=== PATIENT | male | born 1965 | race Caucasian/White ===

== ENCOUNTER 2016-11-12 18:44 | Emergency (ER) | payer MEDICARE, OTHER ==
[~2016-11-12 18:44] MED LIST: ARIP2TAB PO; ASPI325T4 PO; BENZ1TAB5 PO; BUPR75TA5 PO; CETI1SOL11 PO; CHOL400C2 PO; CYCL5TAB PO; DICL75TA PO; DIPH25CA58 PO; FENT1PAT19 TD; FLUT1DIS IH; HYDR-2680 PO; HYDR12.58 PO; METF500T4 PO; METO25TA9 PO; MULT1TAB97 PO; OMEP20TA PO; POLY17PO5 PO; TAMS0.4C2 PO; XOPENEX0.31 MG/3 IH; ZOLP5TAB PO
[2016-11-12 19:15] VITALS: BP 144/92
[2016-11-12] MEDS ORDERED: AZIT250T PO (21:07)
[2016-11-12] MEDS ORDERED: OXYC-323 PO (21:07)
[2016-11-12] MEDS ORDERED: FLUT9.9S NS (21:07)
--- NOTE | 2016-11-12 21:07 | PHYS DOC ---
Past Medical History Past Medical History: Anxiety, Asthma, CVA, Depression, Diabetes-Type II, Diverticulitis, Hypertension, [place], Other Additional Past Medical Histor: Chronic neck and back pain, bulging discs, psychosis Past Surgical History: Hip Replacement Additional Past Surgical Histo: Ankle surgery, bilateral hip Smoking: Cigarettes Alcohol Use: None Drug Use: None Adult General Chief Complaint Chief Complaint: RIB PAIN [facility] HPI Patient is a 51 year old male who presents with left anterior rib pain for 5 days after calling. Patient relates that he slipped and fell on the ice and hit the side of his chest on a railing. He denies any other injuries with the fall. He has had a productive cough for approximately 3 weeks with shortness of breath and nasal congestion as well. He denies any fevers at home. He usually takes Flonase but is out of this prescription. He has been using Afrin for his nasal congestion. His PCP is Dr. Juan Schneider. Review of Systems Review of Systems Constitutional: Denies fever or chills. [] Eyes: Denies change in visual acuity, redness, or eye pain. [] HENT: Denies ear pain or sore throat. Reports nasal congestion. Respiratory: Reports productive cough and shortness of breath. Cardiovascular: Denies palpitations or edema. Reports left anterior rib pain. GI: Denies abdominal pain, nausea, vomiting, bloody stools or diarrhea. [] Musculoskeletal: Denies back pain or joint pain. [] Integument: Denies rash or skin lesions. [] Neurologic: Denies headache, focal weakness or sensory changes. [] All systems reviewed and negative unless otherwise stated in the HPI. Allergies Allergies Allergies Coded Allergies Type Severity Reaction Last Updated Verified propoxyphene Allergy Intermediate hives 09/07/16 Yes codeine Adverse Reaction Intermediate Nausea 09/07/16 No sumatriptan Adverse Reaction Intermediate MIND RACE 09/06/16 No sumatriptan succinate Adverse Reaction Intermediate MIND RACE 09/06/16 No Physical Exam Physical Exam Constitutional: Well developed, well nourished, no acute distress, non-toxic appearance. [] HENT: Normocephalic, atraumatic, bilateral external ears normal, oropharynx moist, no oral exudates, nose normal. Bilateral TMs without erythema or bulging. There is no posterior pharyngeal erythema or tonsillar edema. Eyes: PERRLA, EOMI, conjunctiva normal, no discharge. [] Neck: Normal range of motion, no tenderness, supple, no stridor. [] Cardiovascular: Heart rate regular rhythm, no murmur [] Lungs & Thorax: Bilateral breath sounds clear to auscultation without wheezes, rales, or rhonchi. There is chest wall tenderness over the anterior ribs below the left breast. There is no crepitus. Patient is not in respiratory distress. Abdomen: Bowel sounds normal, soft, no tenderness, no masses, no pulsatile masses. [] Skin: Warm, dry, no erythema, no rash. There is no laceration, abrasion, ecchymosis, or other external signs of injury on the chest wall. Back: No tenderness, no CVA tenderness. [] Extremities: No tenderness, no cyanosis, no clubbing, ROM intact, no edema. [] Neurologic: Alert and oriented X 3, normal motor function, normal sensory function, no focal deficits noted. [] Psychologic: Affect normal, judgement normal, mood normal. [] Current Patient Data Vital Signs Vital Signs Date Time Temp Pulse Resp B/P Pulse Ox O2 Delivery O2 Flow Rate FiO2 11/12/16 19:15 97.6 98 24 97 Room Air 97.6 EKG EKG [] Radiology/Procedures Radiology/Procedures PA x-ray of the chest and rib films were reviewed and interpreted by myself with Dr. Sequeira. There is a nondisplaced fracture of the seventh rib with a left lower lobe pneumonia. Course & Med Decision Making Course & Med Decision Making Pertinent Labs and Imaging studies reviewed. (See chart for details) [] Dragon Disclaimer Dragon Disclaimer This electronic medical record was generated, in whole or in part, using a voice recognition dictation system. Departure Departure Impression: Primary Impression: Rib fracture Additional Impression: Pneumonia Disposition: 01 HOME, SELF-CARE Condition: STABLE Referrals: JUAN SCHNEIDER MD (PCP) Patient Instructions: Pneumonia, Adult, [id number], Rib Fracture, Easy-to- Read Additional Instructions: Your x-ray today shows a broken rib and pneumonia. Please complete all the prescribed antibiotics, even if you are feeling better. Please be sure to take deep breaths and cough as needed. Do not find or wrap the ribs. Please continue to take your home inhalers as directed. Please follow-up with your doctor if your symptoms continue. Return to emergency department if you have difficulty breathing, high fevers, or other new or concerning symptoms. Scripts Fluticasone Propionate (Flonase Allergy Relief)9.9 Ml [place].susp2 Sprays NS DAILY #1 BOTTLE Prov:DARREL PINEDO 11/12/16 Oxycodone/Apap 5-325 (Percocet 5-325 Mg Tablet)1 Each Tablet1 Tab PO PRN Q6HRS PRN PAIN #15 TAB Prov:DARREL PINEDO 11/12/16 Azithromycin (Zithromax)250 Mg Tablet1 Pkg PO UD #6 TAB Prov:DARREL PINEDO 11/12/16 Problem Qualifiers Primary Impression: Rib fracture Encounter type: initial encounter Rib fracture type: single rib Fracture type: closed Laterality: left Qualified Code: S22.32XA - Fracture of one rib, left side, initial encounter for closed fracture Additional Impression: Pneumonia Pneumonia type: due to unspecified organism Laterality: left Lung location : lower lobe of lung Qualified Code: J18.9 - Pneumonia, unspecified organism DARREL PINEDO Nov 12, 2016 21:08
--- NOTE | 2016-11-13 08:39 | RAD ---
Indication fall. Pain. A single view of the chest was obtained. Multiple films targeted to the left ribs were also obtained. No prior imaging of the chest is available. The heart, pulmonary vessels and mediastinum appear normal. There is some minimal volume loss at the left lung base likely reflecting atelectasis. There is no pleural fluid or pneumothorax. There is a calcified granuloma at the left lung base. Films of left ribs appear unremarkable. IMPRESSION: Minimal volume loss at the left lung base likely reflecting atelectasis. Normal plain films left ribs..
== END 2016-11-12 21:17 | disposition home or self-care (01) ==
LOC: ER 18:44
DX: S22.32XA Fracture of one rib, left side, initial encounter for closed fracture (principal); J18.1 Lobar pneumonia, unspecified organism; F41.9 Anxiety disorder, unspecified; J45.909 Unspecified asthma, uncomplicated; F32.9 Major depressive disorder, single episode, unspecified; E11.9 Type 2 diabetes mellitus without complications; I25.2 Old myocardial infarction; I10 Essential (primary) hypertension; F17.210 Nicotine dependence, cigarettes, uncomplicated; G89.29 Other chronic pain; Z86.73 Personal history of transient ischemic attack (TIA), and cerebral infarction without residual deficits; Z88.8 Allergy status to other drugs, medicaments and biological substances; Z88.5 Allergy status to narcotic agent; W00.0XXA Fall on same level due to ice and snow, initial encounter; Y93.89 Activity, other specified; Y92.89 Other specified places as the place of occurrence of the external cause; Y99.8 Other external cause status
CPT/HCPCS: 71101; 99284-25

== ENCOUNTER 2017-01-08 18:11 | Emergency (ER) | payer OTHER ==
[~2017-01-08] VITALS: Ht 165.1 cm; Wt 117.9 kg
[~2017-01-08 18:11] MED LIST changes: +ALPR0.5T6 PO; +AZIT250T PO; +CETI-203 PO; -CETI1SOL11 PO; +FLUT9.9S NS; +HYDR1TAB16 PO; +OXYC-323 PO
[2017-01-08 18:13] VITALS: BP 131/86
--- NOTE | 2017-01-08 18:26 | PHYS DOC ---
Past Medical History Past Medical History: Anxiety, Asthma, CVA, Depression, Diabetes-Type II, Diverticulitis, Hypertension, [place], Other Additional Past Medical Histor: Chronic neck and back pain, bulging discs, psychosis Past Surgical History: Hip Replacement Additional Past Surgical Histo: Ankle surgery, bilateral hip Alcohol Use: None Drug Use: None Adult General Chief Complaint Chief Complaint: HAND PROBLEM [facility] HPI Patient is a 51 year old male with complaint of atraumatic pain and swelling to his right hand for approximate 6 weeks. Patient states that it worsened today. Patient's been seen by his primary care doctor in the past. He has not had any imaging performed at this time. He denies history of inflammatory arthritide's. He states he's had previous broken bones in the hand in the past. Review of Systems Review of Systems Constitutional: Denies fever or chills [] Eyes: Denies change in visual acuity, redness, or eye pain [] HENT: Denies nasal congestion or sore throat [] Respiratory: Denies cough or shortness of breath [] Cardiovascular: No additional information not addressed in HPI [] GI: Denies abdominal pain, nausea, vomiting, bloody stools or diarrhea [] : Denies dysuria or hematuria [] Musculoskeletal: Denies back pain or joint pain [] Integument: Denies rash or skin lesions [] Neurologic: Denies headache, focal weakness or sensory changes [] Endocrine: Denies polyuria or polydipsia [] Allergies Allergies Allergies Coded Allergies Type Severity Reaction Last Updated Verified propoxyphene Allergy Intermediate hives 09/07/16 Yes codeine Adverse Reaction Intermediate Nausea 09/07/16 No sumatriptan Adverse Reaction Intermediate MIND RACE 09/06/16 No sumatriptan succinate Adverse Reaction Intermediate MIND RACE 09/06/16 No Physical Exam Physical Exam Constitutional: Well developed, well nourished, no acute distress, non-toxic appearance. [] HENT: Normocephalic, atraumatic, bilateral external ears normal, oropharynx moist, no oral exudates, nose normal. [] Eyes: PERRLA, EOMI, conjunctiva normal, no discharge. [] Neck: Normal range of motion, no tenderness, supple, no stridor. [] Cardiovascular:Heart rate regular rhythm, no murmur [] Lungs & Thorax: Bilateral breath sounds clear to auscultation [] Abdomen: Bowel sounds normal, soft, no tenderness, no masses, no pulsatile masses. [] Skin: Warm, dry, no erythema, no rash. [] Back: No tenderness, no CVA tenderness. [] Extremities: Right hand with small amount of swelling around the fourth MCP J with tenderness to palpation to the fourth MCP J. There is no palpable defect, deformity, instability or crepitus. Flexor and extensor mechanisms are intact at both the PIPJ and DIPJ. Fingers neurovascularly intact with capillary refill less than 2 seconds. Neurologic: Alert and oriented X 3, normal motor function, normal sensory function, no focal deficits noted. [] Psychologic: Affect normal, judgement normal, mood normal. [] Current Patient Data Vital Signs Vital Signs Date Time Temp Pulse Resp B/P Pulse Ox O2 Delivery O2 Flow Rate FiO2 01/08/17 18:13 97.6 95 20 95 Room Air 97.6 EKG EKG [] Radiology/Procedures Radiology/Procedures 3 views of patient's right hand were performed with adequate technique. There is no evidence of bony abnormality or degeneration of the joints. Course & Med Decision Making Course & Med Decision Making Pertinent Labs and Imaging studies reviewed. (See chart for details) [] Dragon Disclaimer Dragon Disclaimer This electronic medical record was generated, in whole or in part, using a voice recognition dictation system. Departure Departure Impression: Primary Impression: Tendinitis Disposition: 01 HOME, SELF-CARE Condition: GOOD Referrals: MXAX SCHNEIDER MD (PCP) Patient Instructions: Tendinitis, [id number] Additional Instructions: 1. The x-rays of your hand today are normal. 2. You have mild inflammation of the extensor tendons of service your right ring finger. Other than that, there are no other abnormalities or concerns at this time. 3. Take the medication as prescribed. Review the discharge instructions provided for self-care and reasons to return to the emergency department. 4. Call your primary care doctor's office tomorrow to schedule follow-up appointment for reevaluation next week. Scripts Naproxen Sodium (Anaprox Ds)550 Mg Tablet1 Tab PO PRN Q12HRS tendinitis #30 TAB Prov:ARGENIS SOLOMON 01/08/17 ARGENIS SOLOMON Jan 08, 2017 18:26
[2017-01-08] MEDS ORDERED: NAPR550T PO (18:44)
--- NOTE | 2017-01-09 08:34 | RAD ---
Right hand, 3 views, 01/08/2017: History: Hand pain No fracture or dislocation is identified. There are only minimal degenerative changes at scattered interphalangeal joints. No bone erosions are evident. IMPRESSION: No acute bony abnormality is detected.
== END 2017-01-08 18:49 | disposition home or self-care (01) ==
LOC: ER 18:11
DX: M77.9 Enthesopathy, unspecified (principal); F41.9 Anxiety disorder, unspecified; J45.909 Unspecified asthma, uncomplicated; Z86.73 Personal history of transient ischemic attack (TIA), and cerebral infarction without residual deficits; F32.9 Major depressive disorder, single episode, unspecified; E11.9 Type 2 diabetes mellitus without complications; I10 Essential (primary) hypertension; I25.2 Old myocardial infarction; Z96.649 Presence of unspecified artificial hip joint; Z88.5 Allergy status to narcotic agent; Z88.8 Allergy status to other drugs, medicaments and biological substances
CPT/HCPCS: 73130; 99284

== ENCOUNTER 2017-07-29 19:30 | Emergency (ER) | payer OTHER ==
[~2017-07-29 19:30] MED LIST changes: -ARIP2TAB PO; +ARIP2TAB3 PO; -ASPI325T4 PO; +ASPI325T8 PO; +METO-239 PO; -METO25TA9 PO; +NAPR-682 PO; -OMEP20TA PO; +OMEP20TA8 PO; +POLY17PO29 PO; -POLY17PO5 PO
[2017-07-29 19:38] VITALS: BP 127/76
[2017-07-29] MEDS ORDERED: VALIUM10 MG PO (20:07)
--- NOTE | 2017-07-29 20:07 | PHYS DOC ---
Past Medical History Past Medical History: Anxiety, Asthma, CVA, Depression, Diabetes-Type II, Diverticulitis, Hypertension, [place], Other Additional Past Medical Histor: Chronic neck and back pain, bulging discs, psychosis Past Surgical History: Hip Replacement Additional Past Surgical Histo: Ankle surgery, bilateral hip Alcohol Use: None Drug Use: None Adult General Chief Complaint Chief Complaint: BACK PAIN OR INJURY [facility] HPI Patient is a 52 year old male with history of hypertension, diabetes type 2, chronic back pain, left rib fractures, anxiety, depression, who presents today complaining of exacerbation of chronic low back pain radiating to bilateral lower extremities that began today after he bent over to pickup a yessica from his car. Patient denies falling. Denies any pain radiating to bilateral lower extremities. Denies any loss of bowel bladder function. Patient states he follows up with the pain clinic at [facility] where he receives shots to his back. He is also on hydrocodone which he took approximately 2 hours ago. Review of Systems Review of Systems Constitutional: Denies fever or chills [] Eyes: Denies change in visual acuity, redness, or eye pain [] HENT: Denies nasal congestion or sore throat [] Respiratory: Denies cough or shortness of breath [] Cardiovascular: No additional information not addressed in HPI [] GI: Denies abdominal pain, nausea, vomiting, bloody stools or diarrhea [] : Denies dysuria or hematuria [] Musculoskeletal: Low back pain radiating to bilateral lower extremities. Integument: Denies rash or skin lesions [] Neurologic: Denies headache, focal weakness or sensory changes [] Allergies Allergies Allergies Coded Allergies Type Severity Reaction Last Updated Verified propoxyphene Allergy Intermediate hives 09/07/16 Yes codeine Adverse Reaction Intermediate Nausea 09/07/16 No sumatriptan Adverse Reaction Intermediate MIND RACE 09/06/16 No sumatriptan succinate Adverse Reaction Intermediate MIND RACE 09/06/16 No Physical Exam Physical Exam Constitutional: Well developed, well nourished, no acute distress, non-toxic appearance. [] HENT: Normocephalic, atraumatic, bilateral external ears normal, oropharynx moist, no oral exudates, nose normal. [] Eyes: PERRLA, EOMI, conjunctiva normal, no discharge. [] Neck: Normal range of motion, no tenderness, supple, no stridor. [] Cardiovascular:Heart rate regular rhythm, no murmur [] Lungs & Thorax: Bilateral breath sounds clear to auscultation [] Abdomen: Bowel sounds normal, soft, no tenderness, no masses, no pulsatile masses. [] Skin: Warm, dry, no erythema, no rash. [] Back: Lumbar exam difficult. Patient is in a back brace. Patient not willing to lean forward for low me to examine the back due to pain, no CVA tenderness. [] Extremities: No tenderness, no cyanosis, no clubbing, ROM intact, no edema. [] Neurologic: Alert and oriented X 3, normal motor function, normal sensory function, no focal deficits noted. [] Psychologic: Affect normal, judgement normal, mood normal. [] Current Patient Data Vital Signs Vital Signs Date Time Temp Pulse Resp B/P (MAP) Pulse Ox O2 Delivery O2 Flow Rate FiO2 07/29/17 19:38 97.5 86 20 95 Room Air 97.5 EKG EKG [] Radiology/Procedures Radiology/Procedures [] Course & Med Decision Making Course & Med Decision Making Pertinent Labs and Imaging studies reviewed. (See chart for details) This is a 52-year-old male patient with history of chronic back pain who presents today with what sounds like exacerbation of chronic back pain with sciatica as well as lumbosacral strain after lifting a yessica. Patient has no signs or symptoms of cauda equina syndrome. He was given pain relief in the ED and discharged with Valium. Follow-up with his own doctor at [facility] as soon as he can. Dragon Disclaimer Dragon Disclaimer This electronic medical record was generated, in whole or in part, using a voice recognition dictation system. Departure Departure Impression: Primary Impression: Chronic low back pain with bilateral sciatica Additional Impression: Lumbosacral strain Disposition: 01 HOME, SELF-CARE Condition: STABLE Referrals: UNKNOWN PCP NAME (PCP) Follow-up with your doctor at [facility] as soon as possible Patient Instructions: Back Pain, Adult, Lumbosacral Strain Additional Instructions: You were seen with lumbosacral strain as well as exacerbation of chronic back pain. Kindly contact your doctor tomorrow morning and set up a follow-up appointment. We put you on medications to help with the pain, continue taking hydrocodone with Valium. Do not drive or operate machinery on hydrocodone or Vicodin. Scripts Diazepam (VALIUM) 10 Mg Tablet 10 MG PO TID, #15 TAB Prov: JORGEJOLANTAJOSIANE Avila APRN 07/29/17 Problem Qualifiers Primary Impression: Chronic low back pain with bilateral sciatica Back pain laterality: bilateral Qualified Codes: M54.42 - Lumbago with sciatica, left side; M54.41 - Lumbago with sciatica, right side; G89.29 - Other chronic pain Additional Impression: Lumbosacral strain Encounter type: initial encounter Qualified Codes: S39.012A - Strain of muscle, fascia and tendon of lower back, initial encounter JOSIANE CAMACHO [employer]PERINT[employer] Jul 29, 2017 20:07
[2017-07-29] MEDS ORDERED: diazePAM 5 MG TABLET PO ONE (20:30)
[2017-07-29] MEDS ORDERED: KETOROLAC 60 MG/2 ML INJ. IM ONE (20:30)
[2017-07-29] MEDS ORDERED: DEXAMETHASONE SOD PHOS 20 MG/5 ML VIAL. IM ONE (20:30)
[2017-07-29] MEDS ORDERED: fentaNYL PF VIAL 100 MCG/2 ML VIAL IM ONE (20:30)
== END 2017-07-29 20:26 | disposition home or self-care (01) ==
LOC: ER 19:30
DX: S39.012A Strain of muscle, fascia and tendon of lower back, initial encounter (principal); G89.29 Other chronic pain; M54.42 Lumbago with sciatica, left side; M54.41 Lumbago with sciatica, right side; F41.9 Anxiety disorder, unspecified; J45.909 Unspecified asthma, uncomplicated; F32.9 Major depressive disorder, single episode, unspecified; E11.9 Type 2 diabetes mellitus without complications; I10 Essential (primary) hypertension; F29 Unspecified psychosis not due to a substance or known physiological condition; I25.2 Old myocardial infarction; Z88.8 Allergy status to other drugs, medicaments and biological substances; Z88.5 Allergy status to narcotic agent; Z86.73 Personal history of transient ischemic attack (TIA), and cerebral infarction without residual deficits; X58.XXXA Exposure to other specified factors, initial encounter; Y93.89 Activity, other specified; Y92.89 Other specified places as the place of occurrence of the external cause; Y99.8 Other external cause status
CPT/HCPCS: 96372; 99284; J1100; J1885; J3010

== ENCOUNTER 2017-08-23 00:46 | Emergency (ER) | payer OTHER ==
[~2017-08-23] VITALS: Ht 165.1 cm; Wt 117.9 kg
[~2017-08-23 00:46] MED LIST changes: +VALIUM10 MG PO
[2017-08-23 01:13] VITALS: BP 166/107
--- NOTE | 2017-08-23 01:26 | PHYS DOC ---
Past Medical History Past Medical History: Anxiety, Asthma, CVA, Depression, Diabetes-Type II, Diverticulitis, Hypertension, [place], Other Additional Past Medical Histor: Chronic neck and back pain, bulging discs, psychosis Past Surgical History: Hip Replacement Additional Past Surgical Histo: Ankle surgery, bilateral hip Alcohol Use: None Drug Use: None Adult General Chief Complaint Chief Complaint: HAND PROBLEM HPI HPI Patient is a 52 year old male who presents with bilateral lesions to the fingertips of the hands started within the past 1 week after cleaning an oven with some exposure to chemical and also friction he had spent about 6 hours cleaning his oven. Since then he's developed some ulcers on the fingertips excluding the palms of both hands that are painful and tender and he wanted them checked out. Denies any redness to the hand increased hand swelling or fever. He is a borderline diabetic and currently does not take meds for his diabetes. Review of Systems Review of Systems Constitutional: Denies fever or chills [] Eyes: Denies change in visual acuity, redness, or eye pain [] HENT: Denies nasal congestion or sore throat [] Respiratory: Denies cough or shortness of breath [] Cardiovascular: No additional information not addressed in HPI [] GI: Denies abdominal pain, nausea, vomiting, bloody stools or diarrhea [] : Denies dysuria or hematuria [] Musculoskeletal: Denies back pain or joint pain [] Integument: Denies rash or skin lesions [] Neurologic: Denies headache, focal weakness or sensory changes [] Endocrine: Denies polyuria or polydipsia [] Allergies Allergies Allergies Coded Allergies Type Severity Reaction Last Updated Verified propoxyphene Allergy Intermediate hives 09/07/16 Yes codeine Adverse Reaction Intermediate Nausea 09/07/16 No sumatriptan Adverse Reaction Intermediate MIND RACE 09/06/16 No sumatriptan succinate Adverse Reaction Intermediate MIND RACE 09/06/16 No Physical Exam Physical Exam Constitutional: Well developed, well nourished, no acute distress, non-toxic appearance. [] HENT: Normocephalic, atraumatic, bilateral external ears normal, oropharynx moist, no oral exudates, nose normal. [] Eyes: PERRLA, EOMI, conjunctiva normal, no discharge. [] Neck: Normal range of motion, no tenderness, supple, no stridor. [] Cardiovascular:Heart rate regular rhythm, no murmur [] Lungs & Thorax: Bilateral breath sounds clear to auscultation [] Abdomen: Bowel sounds normal, soft, no tenderness, no masses, no pulsatile masses. [] Skin: Warm, dry, no erythema, no rash. [] Back: No tenderness, no CVA tenderness. [] Extremities: Bilateral hands: Very small superficial dry scabbed lesions to the fingertips of his fingers excluding the thumbs. Tenderness to palpation. No erythema or swelling noted to the fingers or hands. Wounds appear to be healing well.[] Neurologic: Alert and oriented X 3, normal motor function, normal sensory function, no focal deficits noted. [] Psychologic: Affect normal, judgement normal, mood normal. [] Current Patient Data Vital Signs Vital Signs Date Time Temp Pulse Resp B/P (MAP) Pulse Ox O2 Delivery O2 Flow Rate FiO2 08/23/17 01:13 97.4 97 20 98 Room Air 97.4 EKG EKG [] Radiology/Procedures Radiology/Procedures [] Course & Med Decision Making Course & Med Decision Making Pertinent Labs and Imaging studies reviewed. (See chart for details) [Wounds are very small in her healing well. There is no signs of secondary infection. I recommended that he put Vaseline or anabolic ointment to the lesions and cover them allow them to heal from the inside out. He washed off his hands very well it's unclear if the lesions were caused by chemicals or just friction as he is been about 6 hours wearing the gloves cleaning the oven.] Dragon Disclaimer Dragon Disclaimer This electronic medical record was generated, in whole or in part, using a voice recognition dictation system. Departure Departure Impression: Primary Impression: Chemical burn of multiple fingers excluding thumb Additional Impression: Skin ulcer of finger Disposition: 01 HOME, SELF-CARE Condition: STABLE Patient Instructions: Wound Care, [id number] Additional Instructions: Apply bacitracin antibiotic ointment or Vaseline to the ulcers and allow for them to heal from the inside out. Please follow-up with her primary care physician in the next 5-7 days for recheck. take your home pain medications when necessary Problem Qualifiers CRYSTAL BRUSH MD Aug 23, 2017 01:26
== END 2017-08-23 01:32 | disposition home or self-care (01) ==
LOC: ER 00:46
DX: T65.891A Toxic effect of other specified substances, accidental (unintentional), initial encounter (principal); T23.432A Corrosion of unspecified degree of multiple left fingers (nail), not including thumb, initial encounter; T23.431A Corrosion of unspecified degree of multiple right fingers (nail), not including thumb, initial encounter; L98.499 Non-pressure chronic ulcer of skin of other sites with unspecified severity; F41.9 Anxiety disorder, unspecified; J45.909 Unspecified asthma, uncomplicated; F32.9 Major depressive disorder, single episode, unspecified; E11.9 Type 2 diabetes mellitus without complications; I10 Essential (primary) hypertension; G89.29 Other chronic pain; F29 Unspecified psychosis not due to a substance or known physiological condition; I25.2 Old myocardial infarction; Z88.8 Allergy status to other drugs, medicaments and biological substances; Z86.73 Personal history of transient ischemic attack (TIA), and cerebral infarction without residual deficits; Z88.5 Allergy status to narcotic agent; Y93.89 Activity, other specified; Y92.89 Other specified places as the place of occurrence of the external cause; Y99.8 Other external cause status
CPT/HCPCS: 99281

== ENCOUNTER 2017-10-23 08:27 | Emergency (ER) | payer OTHER ==
[2017-10-23] MEDS: DIPHTH,PERTUSS(ACELL),TET TOX 0.5 ML DISP.SYRIN. VAX IM (10:08)
== END 2017-10-23 10:38 | disposition home or self-care (01) ==
LOC: ER 08:27
DX: S76.011A Strain of muscle, fascia and tendon of right hip, initial encounter (principal); S80.212A Abrasion, left knee, initial encounter; M25.552 Pain in left hip; E11.9 Type 2 diabetes mellitus without complications; I10 Essential (primary) hypertension; J45.909 Unspecified asthma, uncomplicated; Z86.73 Personal history of transient ischemic attack (TIA), and cerebral infarction without residual deficits; I25.2 Old myocardial infarction; G89.29 Other chronic pain; Z98.890 Other specified postprocedural states; Z88.5 Allergy status to narcotic agent; Z88.8 Allergy status to other drugs, medicaments and biological substances; W01.0XXA Fall on same level from slipping, tripping and stumbling without subsequent striking against object, initial encounter; Y93.89 Activity, other specified; Y99.8 Other external cause status; Y92.89 Other specified places as the place of occurrence of the external cause
CPT/HCPCS: 73521; 73564; 90471; 90715; 99284-25

== ENCOUNTER 2017-11-21 04:48 | Inpatient (IN) | payer OTHER, MEDICARE ==
[2017-11-21] MEDS: ONDANSETRON PF 4 MG/2 ML VIAL. IV ×4 (05:17→10:30)
[2017-11-21] MEDS: IV NORMAL SALINE 1000ML BAG 1,000 ML IV ×8 (05:18→17:40)
[2017-11-21] MEDS: fentaNYL PF VIAL 100 MCG/2 ML VIAL IV ×4 (05:18→06:45)
[2017-11-21] MEDS: FAMOTIDINE 20 MG/2 ML VIAL IVP ×2 (05:18)
[2017-11-21 05:22] LABS: ADD MAN DIFF? NO
[2017-11-21 05:32] LABS: BASO # 0.1 x10^3/uL (0.0-0.2); BASO % 0 % (0-3); EOS # 0.3 x10^3/uL (0.0-0.7); EOS % 2 % (0-3); HEMATOCRIT 44.6 % (39.0-53.0); HEMOGLOBIN 15.1 g/dL (13.0-17.5); LYMPH # 2.4 x10^3/uL (1.0-4.8); LYMPH % 17 % (24-48); MEAN CORPUSCULAR HEMOGLOBIN 31 pg (25-35); MEAN CORPUSCULAR HGB CONC 34 g/dL (31-37); MEAN CORPUSCULAR VOLUME 91 fL (79-100); MONO # 0.7 x10^3/uL (0.0-1.1); MONO % 5 % (0-9); NEUT # 10.3 x10^3uL (1.8-7.7); NEUT % 75 % (31-73); PLATELET COUNT 339 x10^3/uL (140-400); RED BLOOD COUNT 4.87 x10^6/uL (4.30-5.70); RED CELL DISTRIBUTION WIDTH 13.1 % (11.5-14.5); WHITE BLOOD COUNT 13.8 x10^3/uL (4.0-11.0)
[2017-11-21 05:44] LABS: BILIRUBIN,URINE NEGATIVE (NEG); CLARITY,URINE CLEAR; COLOR,URINE YELLOW; GLUCOSE,URINE NEGATIVE (NEG); NITRITE,URINE NEGATIVE (NEG); PROTEIN,URINE NEGATIVE (NEG-TRACE)
[2017-11-21 05:48] LABS: BARBITURATES NEG (NEG); BENZODIAZEPINES NEG (NEG); CANNABINOIDS NEG (NEG); COCAINE NEG (NEG); METHADONE NEG (NEG); OPIATES POS (NEG); PHENCYCLIDINE NEG (NEG)
[2017-11-21 05:53] LABS: AMPHETAMINE/METHAMPHETAMINE NEG (NEG); ETHANOL, URINE NEG (NEG)
[2017-11-21 06:02] LABS: SQUAMOUS EPITHELIAL CELL,UR MOD /LPF
[2017-11-21 06:03] LABS: BACTERIA,URINE FEW /HPF (0-FEW); RBC,URINE 0 /HPF (0-2)
[2017-11-21 06:12] LABS: ANION GAP 14 (6-14); BLOOD UREA NITROGEN 13 mg/dL (8-26); BUN/CREATININE RATIO 14 (6-20); CALCIUM 9.1 mg/dL (8.5-10.1); CARBON DIOXIDE 24 mmol/L (21-32); CHLORIDE 100 mmol/L (98-107); CREATININE 0.9 mg/dL (0.7-1.3); GLUCOSE 130 mg/dL (70-99); POTASSIUM 3.2 mmol/L (3.5-5.1); SODIUM 138 mmol/L (136-145)
[2017-11-21 06:16] LABS: TROPONINI < 0.017 ng/mL (0.000-0.055)
[2017-11-21 06:18] LABS: ALBUMIN 3.8 g/dL (3.4-5.0); ALK PHOS 94 U/L (46-116); ALT (SGPT) 37 U/L (16-63); AST (SGOT) 20 U/L (15-37); LIPASE 112 U/L (73-393); TOTAL BILIRUBIN 0.4 mg/dL (0.2-1.0); TOTAL PROTEIN 7.6 g/dL (6.4-8.2)
[2017-11-21] MEDS ORDERED: CONTRAST GIVEN MC ×2 (07:15)
[2017-11-21] MEDS: IOHEXOL 300 MG/ML 100ML VIAL. IV ×2 (07:26)
[2017-11-21] MEDS ORDERED: ONDANSETRON PF 4 MG/2 ML VIAL. IV ×2 (07:30)
[2017-11-21] MEDS ORDERED: ALBUTEROL SULFATE 2.5 MG/3 ML NEBU. NEB ×2 (07:45)
[2017-11-21] MEDS: MORPHINE SULFATE 4 MG/ML DISP.SYRIN. IV ×12 (08:01→23:22)
[2017-11-21] MEDS ORDERED: levOFLOXacin PER PHARMACY. MC ×2 (08:15)
[2017-11-21] MEDS: ACETAMINOPHEN 325 MG TABLET. PO ×4 (12:11→17:41)
[2017-11-21] MEDS: PANTOPRAZOLE 40 MG TABLET.DR. PO ×2 (12:11)
[2017-11-21] MEDS: POTASSIUM CHLORIDE 20 MEQ TABLET.ER. PO ×2 (17:47)
[2017-11-21] MEDS: ASPIRIN 325 MG TABLET PO ×2 (17:47)
[2017-11-21] MEDS: METOPROLOL SUCC 24HR ER 25 MG TAB.ER.24H. PO ×2 (18:35)
[2017-11-21] MEDS: BENZTROPINE MESYLATE 1 MG TABLET. PO ×2 (20:17)
[2017-11-21] MEDS: diphenhydrAMINE HCL 25 MG CAPSULE PO ×2 (20:18)
[2017-11-21] MEDS: ALPRAZolam 0.5 MG TABLET PO ×2 (20:21)
[2017-11-22] MEDS: oxyCODONE/APAP 5/325 1 TAB TABLET PO ×4 (01:57→11:23)
[2017-11-22] MEDS: ASA/APAP/CAFFEINE 250/250/65MG TABLET. PO ×2 (02:18)
[2017-11-22] MEDS: HYDROcodone/APAP 10/325 1 TAB TABLET PO ×10 (05:20→23:47)
[2017-11-22] MEDS: IPRATRPIUM/ALBUTEROL 0.5/2.5MG 3 ML NEBU. NEB ×8 (07:19→20:00)
[2017-11-22] MEDS: ALPRAZolam 0.5 MG TABLET PO ×2 (09:00)
[2017-11-22] MEDS: BENZTROPINE MESYLATE 1 MG TABLET. PO ×4 (09:16→19:49)
[2017-11-22] MEDS: ASPIRIN 325 MG TABLET PO ×2 (09:16)
[2017-11-22] MEDS: TAMSULOSIN 0.4 MG CAP.ER.24H. PO ×2 (09:17)
[2017-11-22] MEDS: METOPROLOL SUCC 24HR ER 25 MG TAB.ER.24H. PO ×2 (09:17)
[2017-11-22] MEDS: PANTOPRAZOLE 40 MG TABLET.DR. PO ×2 (09:17)
[2017-11-22] MEDS: POTASSIUM CHLORIDE 20 MEQ TABLET.ER. PO ×2 (09:17)
[2017-11-22] MEDS: POLYETHYLENE GLYCOL 3350 17 GM PACKET. PO ×2 (09:21)
[2017-11-22 11:45] LABS: ADD MAN DIFF? NO
[2017-11-22 11:50] LABS: BASO % 0 % (0-3); EOS # 0.4 x10^3/uL (0.0-0.7); EOS % 4 % (0-3); HEMATOCRIT 33.6 % (39.0-53.0); HEMOGLOBIN 11.6 g/dL (13.0-17.5); LYMPH # 2.3 x10^3/uL (1.0-4.8); LYMPH % 26 % (24-48); MEAN CORPUSCULAR HEMOGLOBIN 32 pg (25-35); MEAN CORPUSCULAR HGB CONC 35 g/dL (31-37); MEAN CORPUSCULAR VOLUME 93 fL (79-100); MONO # 0.7 x10^3/uL (0.0-1.1); MONO % 8 % (0-9); NEUT # 5.5 x10^3uL (1.8-7.7); NEUT % 62 % (31-73); PLATELET COUNT 224 x10^3/uL (140-400); RED BLOOD COUNT 3.64 x10^6/uL (4.30-5.70); RED CELL DISTRIBUTION WIDTH 13.1 % (11.5-14.5); WHITE BLOOD COUNT 8.9 x10^3/uL (4.0-11.0)
[2017-11-22 11:57] LABS: ANION GAP 6 (6-14); BLOOD UREA NITROGEN 5 mg/dL (8-26); CALCIUM 7.8 mg/dL (8.5-10.1); CARBON DIOXIDE 26 mmol/L (21-32); CHLORIDE 105 mmol/L (98-107); CREATININE 0.8 mg/dL (0.7-1.3); GFR 101.9; GLUCOSE 112 mg/dL (70-99); POTASSIUM 3.7 mmol/L (3.5-5.1); SODIUM 137 mmol/L (136-145)
[2017-11-22] MEDS ORDERED: ALPRAZolam 0.5 MG TABLET PO ×2 (14:15)
[2017-11-22] MEDS: ONDANSETRON PF 4 MG/2 ML VIAL. IV ×4 (15:51→23:49)
[2017-11-22] MEDS: diphenhydrAMINE HCL 25 MG CAPSULE PO ×2 (19:49)
[2017-11-22] MEDS: MORPHINE SULFATE 2 MG/ML DISP.SYRIN. IV ×2 (19:53)
[2017-11-23] MEDS: MORPHINE SULFATE 2 MG/ML DISP.SYRIN. IV ×10 (02:01→22:24)
[2017-11-23] MEDS: ASA/APAP/CAFFEINE 250/250/65MG TABLET. PO ×2 (04:28)
[2017-11-23] MEDS: HYDROcodone/APAP 10/325 1 TAB TABLET PO ×8 (04:32→20:45)
[2017-11-23 06:13] LABS: ADD MAN DIFF? NO
[2017-11-23 06:28] LABS: BASO % 1 % (0-3); EOS # 0.4 x10^3/uL (0.0-0.7); EOS % 5 % (0-3); HEMATOCRIT 35.3 % (39.0-53.0); HEMOGLOBIN 12.1 g/dL (13.0-17.5); LYMPH # 1.6 x10^3/uL (1.0-4.8); LYMPH % 18 % (24-48); MEAN CORPUSCULAR HEMOGLOBIN 32 pg (25-35); MEAN CORPUSCULAR HGB CONC 34 g/dL (31-37); MEAN CORPUSCULAR VOLUME 94 fL (79-100); MONO # 0.3 x10^3/uL (0.0-1.1); MONO % 4 % (0-9); NEUT # 6.3 x10^3uL (1.8-7.7); NEUT % 73 % (31-73); PLATELET COUNT 233 x10^3/uL (140-400); RED BLOOD COUNT 3.76 x10^6/uL (4.30-5.70); RED CELL DISTRIBUTION WIDTH 13.3 % (11.5-14.5); WHITE BLOOD COUNT 8.7 x10^3/uL (4.0-11.0)
[2017-11-23 06:54] LABS: ALBUMIN 3.1 g/dL (3.4-5.0); ALBUMIN/GLOBULIN RATIO 0.9 (1.0-1.7); ALK PHOS 68 U/L (46-116); ALT (SGPT) 33 U/L (16-63); ANION GAP 7 (6-14); AST (SGOT) 18 U/L (15-37); BLOOD UREA NITROGEN 4 mg/dL (8-26); BUN/CREATININE RATIO 5 (6-20); CALCIUM 8.1 mg/dL (8.5-10.1); CARBON DIOXIDE 27 mmol/L (21-32); CHLORIDE 107 mmol/L (98-107); CREATININE 0.8 mg/dL (0.7-1.3); GFR 101.9; GLUCOSE 90 mg/dL (70-99); POTASSIUM 4.1 mmol/L (3.5-5.1); SODIUM 141 mmol/L (136-145); TOTAL BILIRUBIN 0.4 mg/dL (0.2-1.0); TOTAL PROTEIN 6.4 g/dL (6.4-8.2)
[2017-11-23] MEDS: IPRATRPIUM/ALBUTEROL 0.5/2.5MG 3 ML NEBU. NEB ×8 (07:09→20:00)
[2017-11-23] MEDS: ASPIRIN 325 MG TABLET PO ×2 (08:08)
[2017-11-23] MEDS: buPROPion XL 150 MG TAB.ER.24H. PO ×2 (08:09)
[2017-11-23] MEDS: ARIPiprazole 5 MG TABLET PO ×2 (08:13)
[2017-11-23] MEDS: BENZTROPINE MESYLATE 1 MG TABLET. PO ×4 (08:13→20:45)
[2017-11-23] MEDS: PANTOPRAZOLE 40 MG TABLET.DR. PO ×2 (08:14)
[2017-11-23] MEDS: POTASSIUM CHLORIDE 20 MEQ TABLET.ER. PO ×2 (08:14)
[2017-11-23] MEDS: TAMSULOSIN 0.4 MG CAP.ER.24H. PO ×2 (08:14)
[2017-11-23] MEDS: METOPROLOL SUCC 24HR ER 25 MG TAB.ER.24H. PO ×2 (08:15)
[2017-11-23] MEDS: POLYETHYLENE GLYCOL 3350 17 GM PACKET. PO ×4 (08:15→21:00)
[2017-11-23] MEDS ORDERED: CALCIUM CARBONATE 500 MG TAB.CHEW PO ×2 (10:00)
[2017-11-23] MEDS: LACTOBACILLUS RHAMNOSUS GG 1 CAPSULE. PO ×4 (11:39→20:45)
[2017-11-23] MEDS ORDERED: DEXTROSE 50% 25 GM / 50ML DISP.SYRIN. IV ×2 (12:45)
[2017-11-23] MEDS ORDERED: INSULIN ASPART 300 UNITS/3 ML INSULN.PEN SQ ×2 (17:00)
[2017-11-23] MEDS: diphenhydrAMINE HCL 25 MG CAPSULE PO ×2 (20:45)
[2017-11-23 21:26] LABS: POC GLUCOSE 131 mg/dL (70-99)
[2017-11-24] MEDS: HYDROcodone/APAP 10/325 1 TAB TABLET PO ×12 (00:51→23:56)
[2017-11-24] MEDS: ASA/APAP/CAFFEINE 250/250/65MG TABLET. PO ×2 (02:44)
[2017-11-24 04:50] LABS: ADD MAN DIFF? NO
[2017-11-24 05:04] LABS: BASO # 0.1 x10^3/uL (0.0-0.2); BASO % 1 % (0-3); EOS # 0.5 x10^3/uL (0.0-0.7); EOS % 7 % (0-3); HEMATOCRIT 35.6 % (39.0-53.0); HEMOGLOBIN 12.2 g/dL (13.0-17.5); LYMPH # 1.9 x10^3/uL (1.0-4.8); LYMPH % 26 % (24-48); MEAN CORPUSCULAR HEMOGLOBIN 32 pg (25-35); MEAN CORPUSCULAR HGB CONC 34 g/dL (31-37); MEAN CORPUSCULAR VOLUME 94 fL (79-100); MONO # 0.6 x10^3/uL (0.0-1.1); MONO % 8 % (0-9); NEUT # 4.1 x10^3uL (1.8-7.7); NEUT % 58 % (31-73); PLATELET COUNT 243 x10^3/uL (140-400); RED CELL DISTRIBUTION WIDTH 13.2 % (11.5-14.5); WHITE BLOOD COUNT 7.1 x10^3/uL (4.0-11.0)
[2017-11-24 05:33] LABS: ALBUMIN 3.2 g/dL (3.4-5.0); ALBUMIN/GLOBULIN RATIO 0.9 (1.0-1.7); ALK PHOS 73 U/L (46-116); ALT (SGPT) 48 U/L (16-63); ANION GAP 8 (6-14); AST (SGOT) 37 U/L (15-37); BLOOD UREA NITROGEN 3 mg/dL (8-26); BUN/CREATININE RATIO 4 (6-20); CALCIUM 8.2 mg/dL (8.5-10.1); CARBON DIOXIDE 26 mmol/L (21-32); CHLORIDE 106 mmol/L (98-107); CREATININE 0.8 mg/dL (0.7-1.3); GFR 101.9; GLUCOSE 119 mg/dL (70-99); POTASSIUM 3.9 mmol/L (3.5-5.1); SODIUM 140 mmol/L (136-145); TOTAL BILIRUBIN 0.3 mg/dL (0.2-1.0); TOTAL PROTEIN 6.7 g/dL (6.4-8.2)
[2017-11-24] MEDS: PANTOPRAZOLE 40 MG TABLET.DR. PO ×2 (06:22)
[2017-11-24] MEDS: IPRATRPIUM/ALBUTEROL 0.5/2.5MG 3 ML NEBU. NEB ×8 (07:49→20:05)
[2017-11-24] MEDS: LACTOBACILLUS RHAMNOSUS GG 1 CAPSULE. PO ×4 (08:33→21:14)
[2017-11-24] MEDS: POTASSIUM CHLORIDE 20 MEQ TABLET.ER. PO ×2 (08:34)
[2017-11-24] MEDS: BENZTROPINE MESYLATE 1 MG TABLET. PO ×4 (08:34→21:14)
[2017-11-24] MEDS: METOPROLOL SUCC 24HR ER 25 MG TAB.ER.24H. PO ×2 (08:34)
[2017-11-24] MEDS: ARIPiprazole 5 MG TABLET PO ×2 (08:35)
[2017-11-24] MEDS: buPROPion XL 150 MG TAB.ER.24H. PO ×2 (08:35)
[2017-11-24] MEDS: ASPIRIN 325 MG TABLET PO ×2 (08:35)
[2017-11-24] MEDS: TAMSULOSIN 0.4 MG CAP.ER.24H. PO ×2 (08:35)
[2017-11-24] MEDS: MORPHINE SULFATE 2 MG/ML DISP.SYRIN. IV ×4 (08:36→14:06)
[2017-11-24] MEDS: POLYETHYLENE GLYCOL 3350 17 GM PACKET. PO ×4 (08:44→21:14)
[2017-11-24] MEDS: CYCLOBENZAPRINE 10 MG TABLET. PO ×2 (20:01)
[2017-11-24] MEDS: diphenhydrAMINE HCL 25 MG CAPSULE PO ×2 (21:13)
[2017-11-24] MEDS: DICLOFENAC SODIUM 25 MG TABLET.DR PO ×2 (21:14)
[2017-11-25] MEDS: HYDROcodone/APAP 10/325 1 TAB TABLET PO ×4 (04:06→08:31)
[2017-11-25 04:50] LABS: ADD MAN DIFF? NO
[2017-11-25 05:03] LABS: BASO % 1 % (0-3); EOS # 0.4 x10^3/uL (0.0-0.7); EOS % 6 % (0-3); HEMATOCRIT 36.5 % (39.0-53.0); HEMOGLOBIN 12.4 g/dL (13.0-17.5); LYMPH # 1.7 x10^3/uL (1.0-4.8); LYMPH % 26 % (24-48); MEAN CORPUSCULAR HEMOGLOBIN 32 pg (25-35); MEAN CORPUSCULAR HGB CONC 34 g/dL (31-37); MEAN CORPUSCULAR VOLUME 93 fL (79-100); MONO # 0.5 x10^3/uL (0.0-1.1); MONO % 8 % (0-9); NEUT % 60 % (31-73); PLATELET COUNT 260 x10^3/uL (140-400); RED BLOOD COUNT 3.94 x10^6/uL (4.30-5.70); RED CELL DISTRIBUTION WIDTH 13.3 % (11.5-14.5); WHITE BLOOD COUNT 6.7 x10^3/uL (4.0-11.0)
[2017-11-25 05:29] LABS: ALBUMIN 3.2 g/dL (3.4-5.0); ALK PHOS 68 U/L (46-116); ALT (SGPT) 56 U/L (16-63); ANION GAP 9 (6-14); AST (SGOT) 34 U/L (15-37); BLOOD UREA NITROGEN 4 mg/dL (8-26); BUN/CREATININE RATIO 4 (6-20); CALCIUM 8.5 mg/dL (8.5-10.1); CARBON DIOXIDE 25 mmol/L (21-32); CHLORIDE 103 mmol/L (98-107); GFR 78.8; GLUCOSE 189 mg/dL (70-99); POTASSIUM 3.7 mmol/L (3.5-5.1); SODIUM 137 mmol/L (136-145); TOTAL BILIRUBIN 0.2 mg/dL (0.2-1.0); TOTAL PROTEIN 6.4 g/dL (6.4-8.2)
[2017-11-25] MEDS: IPRATRPIUM/ALBUTEROL 0.5/2.5MG 3 ML NEBU. NEB ×2 (07:26)
[2017-11-25] MEDS: PANTOPRAZOLE 40 MG TABLET.DR. PO ×2 (07:29)
[2017-11-25] MEDS: POLYETHYLENE GLYCOL 3350 17 GM PACKET. PO ×2 (08:30)
[2017-11-25] MEDS: LACTOBACILLUS RHAMNOSUS GG 1 CAPSULE. PO ×2 (08:30)
[2017-11-25] MEDS: ASPIRIN 325 MG TABLET PO ×2 (08:31)
[2017-11-25] MEDS: DICLOFENAC SODIUM 25 MG TABLET.DR PO ×2 (08:31)
[2017-11-25] MEDS: BENZTROPINE MESYLATE 1 MG TABLET. PO ×2 (08:31)
[2017-11-25] MEDS: buPROPion XL 150 MG TAB.ER.24H. PO ×2 (08:32)
[2017-11-25] MEDS: POTASSIUM CHLORIDE 20 MEQ TABLET.ER. PO ×2 (08:32)
[2017-11-25] MEDS: TAMSULOSIN 0.4 MG CAP.ER.24H. PO ×2 (08:32)
[2017-11-25] MEDS: METOPROLOL SUCC 24HR ER 25 MG TAB.ER.24H. PO ×2 (08:32)
[2017-11-25] MEDS: ARIPiprazole 5 MG TABLET PO ×2 (08:32)
[2017-11-25] MEDS: metroNIDAZOLE 500 MG TABLET PO ×2 (08:35)
[2017-11-25] MEDS: CIPROFLOXACIN HCL 250 MG TABLET. PO ×2 (08:35)
[2017-11-25] MEDS: CYCLOBENZAPRINE 10 MG TABLET. PO ×2 (08:36)
== END 2017-11-25 10:35 | disposition home or self-care (01) | DRG 872 ==
LOC: ER 04:48 → ED HOLD 08:04 → 4 NORTH 13:50
DX: A41.9 Sepsis, unspecified organism (principal); E66.01 Morbid (severe) obesity due to excess calories; Z68.41 Body mass index [BMI] 40.0-44.9, adult; K57.32 Diverticulitis of large intestine without perforation or abscess without bleeding; R13.10 Dysphagia, unspecified; D64.9 Anemia, unspecified; E11.9 Type 2 diabetes mellitus without complications; E87.6 Hypokalemia; F17.210 Nicotine dependence, cigarettes, uncomplicated; G47.33 Obstructive sleep apnea (adult) (pediatric); N40.0 Benign prostatic hyperplasia without lower urinary tract symptoms; K59.00 Constipation, unspecified; I10 Essential (primary) hypertension; I25.10 Atherosclerotic heart disease of native coronary artery without angina pectoris; F41.1 Generalized anxiety disorder; G89.4 Chronic pain syndrome; J45.909 Unspecified asthma, uncomplicated; K21.9 Gastro-esophageal reflux disease without esophagitis; K52.9 Noninfective gastroenteritis and colitis, unspecified; Z96.649 Presence of unspecified artificial hip joint; F32.9 Major depressive disorder, single episode, unspecified; M19.90 Unspecified osteoarthritis, unspecified site; Z80.9 Family history of malignant neoplasm, unspecified; Z82.49 Family history of ischemic heart disease and other diseases of the circulatory system; Z83.3 Family history of diabetes mellitus; Z86.73 Personal history of transient ischemic attack (TIA), and cerebral infarction without residual deficits; Z87.11 Personal history of peptic ulcer disease; Z87.442 Personal history of urinary calculi; Z88.8 Allergy status to other drugs, medicaments and biological substances; Z88.5 Allergy status to narcotic agent
CPT/HCPCS: 36415; 71260; 74177; 80048; 80053; 80307; 81001; 82962; 83690; 84484; 85025; 93005; 94640; 94760; 96361; 96365; 96366; 96375; 99285; 99285-25; J1815; J1956; J2270; J2405; J3010; J3490; J7030; J7620; Q0163; Q9967; S0028

== ENCOUNTER 2018-01-20 18:44 | Emergency (ER) | payer OTHER ==
[2018-01-20] MEDS: HYDROcodone/APAP 5/325MG 1 TAB TABLET PO (20:24)
[2018-01-20] MEDS: CYCLOBENZAPRINE 10 MG TABLET. PO (20:24)
== END 2018-01-20 21:35 | disposition home or self-care (01) ==
LOC: ER 18:44
DX: G89.29 Other chronic pain (principal); M54.42 Lumbago with sciatica, left side; M54.41 Lumbago with sciatica, right side; M54.6 Pain in thoracic spine; M25.551 Pain in right hip; M25.552 Pain in left hip; M54.2 Cervicalgia; R07.81 Pleurodynia; Z86.73 Personal history of transient ischemic attack (TIA), and cerebral infarction without residual deficits; I10 Essential (primary) hypertension; E11.9 Type 2 diabetes mellitus without complications; J45.909 Unspecified asthma, uncomplicated; I25.2 Old myocardial infarction; Z98.890 Other specified postprocedural states; Z88.5 Allergy status to narcotic agent; Z88.8 Allergy status to other drugs, medicaments and biological substances; W10.9XXA Fall (on) (from) unspecified stairs and steps, initial encounter; Y93.89 Activity, other specified; Y99.8 Other external cause status; Y92.89 Other specified places as the place of occurrence of the external cause
CPT/HCPCS: 70450; 71101; 72125; 72128; 73521; 99284-25

== ENCOUNTER 2018-02-16 15:35 | Emergency (ER) | payer OTHER ==
[2018-02-16 16:09] LABS: ADD MAN DIFF? NO
[2018-02-16] MEDS: fentaNYL PF VIAL 100 MCG/2 ML VIAL IV (16:14)
[2018-02-16] MEDS: IV NORMAL SALINE 1000ML BAG 1,000 ML IV (16:14)
[2018-02-16] MEDS: ONDANSETRON PF 4 MG/2 ML VIAL. IV (16:14)
[2018-02-16 16:15] LABS: BILIRUBIN,URINE NEGATIVE (NEG); CLARITY,URINE CLOUDY; COLOR,URINE YELLOW; GLUCOSE,URINE NEGATIVE (NEG); NITRITE,URINE NEGATIVE (NEG); PROTEIN,URINE NEGATIVE (NEG-TRACE)
[2018-02-16] MEDS ORDERED: CONTRAST GIVEN MC (16:15)
[2018-02-16 16:19] LABS: BASO # 0.1 x10^3/uL (0.0-0.2); BASO % 1 % (0-3); EOS # 0.4 x10^3/uL (0.0-0.7); EOS % 3 % (0-3); HEMATOCRIT 39.4 % (39.0-53.0); HEMOGLOBIN 13.9 g/dL (13.0-17.5); LYMPH # 2.5 x10^3/uL (1.0-4.8); LYMPH % 23 % (24-48); MEAN CORPUSCULAR HEMOGLOBIN 32 pg (25-35); MEAN CORPUSCULAR HGB CONC 35 g/dL (31-37); MEAN CORPUSCULAR VOLUME 91 fL (79-100); MONO # 0.6 x10^3/uL (0.0-1.1); MONO % 6 % (0-9); NEUT # 7.4 x10^3uL (1.8-7.7); NEUT % 67 % (31-73); PLATELET COUNT 265 x10^3/uL (140-400); RED BLOOD COUNT 4.31 x10^6/uL (4.30-5.70); RED CELL DISTRIBUTION WIDTH 13.3 % (11.5-14.5)
[2018-02-16 16:22] LABS: ANION GAP 7 (6-14); BLOOD UREA NITROGEN 17 mg/dL (8-26); BUN/CREATININE RATIO 17 (6-20); CALCIUM 8.9 mg/dL (8.5-10.1); CARBON DIOXIDE 26 mmol/L (21-32); CHLORIDE 105 mmol/L (98-107); GFR 78.8; GLUCOSE 129 mg/dL (70-99); POTASSIUM 3.7 mmol/L (3.5-5.1); SODIUM 138 mmol/L (136-145)
[2018-02-16 16:28] LABS: ALBUMIN 3.1 g/dL (3.4-5.0); ALBUMIN/GLOBULIN RATIO 0.9 (1.0-1.7); ALK PHOS 84 U/L (46-116); ALT (SGPT) 33 U/L (16-63); AST (SGOT) 13 U/L (15-37); LIPASE 176 U/L (73-393); TOTAL BILIRUBIN 0.4 mg/dL (0.2-1.0); TOTAL PROTEIN 6.6 g/dL (6.4-8.2)
[2018-02-16] MEDS: IOHEXOL 300 MG/ML 100ML VIAL. IV (16:42)
[2018-02-16 16:48] LABS: BACTERIA,URINE FEW /HPF (0-FEW); RBC,URINE 0 /HPF (0-2); SQUAMOUS EPITHELIAL CELL,UR FEW /LPF
== END 2018-02-16 19:14 | disposition home or self-care (01) ==
LOC: ER 15:35
DX: R10.32 Left lower quadrant pain (principal); G89.29 Other chronic pain; E11.9 Type 2 diabetes mellitus without complications; I10 Essential (primary) hypertension; J44.9 Chronic obstructive pulmonary disease, unspecified; I25.2 Old myocardial infarction; Z86.73 Personal history of transient ischemic attack (TIA), and cerebral infarction without residual deficits; Z88.5 Allergy status to narcotic agent; Z88.8 Allergy status to other drugs, medicaments and biological substances
CPT/HCPCS: 36415; 74177; 80053; 81001; 83690; 85025; 87086; 93005; 96361; 96374; 96375; 99285-25; J2405; J3010; J7030; Q9967

== ENCOUNTER 2019-01-06 04:18 | Emergency (ER) | payer OTHER ==
[~2019-01-06] VITALS: Ht 165.1 cm; Wt 117.9 kg
[~2019-01-06 04:18] MED LIST changes: +CIPR250T30 PO; +METF500T16 PO; -METF500T4 PO; +METR500T PO; -OXYC-323 PO; +OXYC1TAB15 PO
--- NOTE | 2019-01-06 04:45 | PHYS DOC ---
Past Medical History Past Medical History: Anxiety, Asthma, COPD, CVA, Depression, Diabetes-Type II , Hypertension, MS, Other Additional Past Medical Histor: chronic pain, psychosis. Past Surgical History: Other Additional Past Surgical Histo: bilat hips, ankle Alcohol Use: None Drug Use: None Adult General Chief Complaint Chief Complaint: MULTIPLE COMPLAINTS HPI HPI Patient is a 53-year-old male who presents with complaint of productive cough, chest wall pain, sore throat and congestion that started 2 days ago. Patient states that last night his sore throat had gotten worse and he is having difficulty with swallowing due to the pain. He states that he also has pain in the left side of his chest that he attributes to coughing. He states the pain is worse with coughing and describes it as burning in the chest and states that his chest is getting sore to the touch as well. He states that he feels like he is been running a fever but has no thermometer. He denies any nausea, vomiting or diaphoresis. Review of Systems Review of Systems Constitutional: Positive subjective fever and chills [] HENT: Positive congestion and sore throat [] Respiratory: Positive productive cough without shortness of breath [] Cardiovascular: No additional information not addressed in HPI [] GI: Denies abdominal pain, nausea, vomiting or diarrhea [] Integument: Denies rash or skin lesions [] Neurologic: Denies headache, focal weakness or sensory changes [] All other systems were reviewed and found to be within normal limits, except as documented in this note. Current Medications Current Medications Current Medications Medications (Trade) Dose Ordered Sig/Joaquina Start Time Stop Time Status Last Admin Dose Admin Ceftriaxone Sodium (Rocephin) 1 gm 1X ONCE 01/06/19 05:30 01/06/19 05:31 UNV Sodium Chloride 1,000 ml @ 1,000 mls/hr Q1H 01/06/19 05:00 01/06/19 05:59 01/06/19 05:23 1,000 MLS/HR Allergies Allergies Allergies Coded Allergies Type Severity Reaction Last Updated Verified propoxyphene Allergy Intermediate hives 09/07/16 Yes codeine Adverse Reaction Intermediate Nausea 11/22/17 Yes sumatriptan Adverse Reaction Intermediate MIND RACE 11/22/17 Yes sumatriptan succinate Adverse Reaction Intermediate MIND RACE 11/22/17 Yes Physical Exam Physical Exam Constitutional: Well developed, well nourished, no acute distress, non-toxic appearance. [] HENT: Normocephalic, atraumatic, bilateral external ears normal, oropharynx moist, no oral exudates, nose normal. [] Eyes: PERRLA, EOMI, conjunctiva normal, no discharge. [] Neck: Normal range of motion, no tenderness, supple, no stridor. [] Cardiovascular: Regular rate and rhythm[] Lungs & Thorax: Fine rhonchi noted bilaterally to auscultation [] Abdomen: Bowel sounds normal, soft, no tenderness. [] Skin: Warm, dry, no erythema, no rash. [] Extremities: No tenderness, no cyanosis, no clubbing, ROM intact, no edema. [] Neurologic: Alert and oriented X 3, no focal deficits noted. [] Current Patient Data Vital Signs Vital Signs Date Time Temp Pulse Resp B/P (MAP) Pulse Ox O2 Delivery O2 Flow Rate FiO2 01/06/19 04:25 98.0 96 22 179/84 (115) 95 Room Air 98.0 Lab Values Laboratory Tests Test 01/06/19 04:45 01/06/19 04:46 Sodium Level 139 mmol/L (136-145) Potassium Level 3.5 mmol/L (3.5-5.1) Chloride Level 100 mmol/L (98-107) Carbon Dioxide Level 28 mmol/L (21-32) Anion Gap 11 (6-14) Blood Urea Nitrogen 22 mg/dL (8-26) Creatinine 1.2 mg/dL (0.7-1.3) Estimated GFR (Cockcroft-Gault) 63.6 BUN/Creatinine Ratio 18 (6-20) Glucose Level 94 mg/dL (70-99) Calcium Level 9.0 mg/dL (8.5-10.1) Total Bilirubin Pending Aspartate Amino Transferase (AST) Pending Alanine Aminotransferase (ALT) Pending Alkaline Phosphatase Pending Total Protein Pending Albumin Pending Albumin/Globulin Ratio Pending Influenza Type A Antigen Negative (NEGATIVE) Influenza Type B Antigen Negative (NEGATIVE) White Blood Count 11.9 x10^3/uL (4.0-11.0) H Red Blood Count 3.98 x10^6/uL (4.30-5.70) L Hemoglobin 12.2 g/dL (13.0-17.5) L Hematocrit 36.6 % (39.0-53.0) L Mean Corpuscular Volume 92 fL (79-100) Mean Corpuscular Hemoglobin 31 pg (25-35) Mean Corpuscular Hemoglobin Concent 33 g/dL (31-37) Red Cell Distribution Width 13.6 % (11.5-14.5) Platelet Count 262 x10^3/uL (140-400) Neutrophils (%) (Auto) 72 % (31-73) Lymphocytes (%) (Auto) 18 % (24-48) L Monocytes (%) (Auto) 7 % (0-9) Eosinophils (%) (Auto) 3 % (0-3) Basophils (%) (Auto) 0 % (0-3) Neutrophils # (Auto) 8.5 x10^3uL (1.8-7.7) H Lymphocytes # (Auto) 2.1 x10^3/uL (1.0-4.8) Monocytes # (Auto) 0.8 x10^3/uL (0.0-1.1) Eosinophils # (Auto) 0.4 x10^3/uL (0.0-0.7) Basophils # (Auto) 0.0 x10^3/uL (0.0-0.2) Laboratory Tests 01/06/19 04:46 Laboratory Tests 01/06/19 04:45 EKG EKG [] Interpretation Time: EKG demonstrates normal sinus rhythm with rate of 93. Radiology/Procedures Radiology/Procedures [] Impressions: Chest x-ray demonstrates peribronchial thickening suggestive of bronchitis. Course & Med Decision Making Course & Med Decision Making Pertinent Labs and Imaging studies reviewed. (See chart for details) [] Dragon Disclaimer Dragon Disclaimer This electronic medical record was generated, in whole or in part, using a voice recognition dictation system. Departure Departure Impression: Primary Impression: Acute bronchitis Disposition: 01 HOME, SELF-CARE Condition: STABLE Referrals: MARIANA JUÁREZ (PCP) Patient Instructions: Acute Bronchitis Scripts Methylprednisolone (MEDROL) 4 Mg Tab.ds.pk 1 PKG PO UD, #1 PKG Prov: JEFFERY COOPER Jr. DO 01/06/19 Amoxicillin/Potassium Clav (AUGMENTIN 875-125 TABLET) 1 Each Tablet 1 TAB PO BID, #20 TAB Prov: JEFFERY COOPER Jr. DO 01/06/19 Problem Qualifiers Primary Impression: Acute bronchitis Bronchitis organism: unspecified organism Qualified Codes: J20.9 - Acute bronchitis, unspecified JEFFERY COOPER Jr. DO Jan 06, 2019 04:45
[2019-01-06] MEDS ORDERED: IV NORMAL SALINE 1000ML BAG 1,000 ML IV SCH (05:00)
--- NOTE | 2019-01-06 05:03 | RAD ---
CHEST PA LATERAL CLINICAL INDICATION: COUGH COMPARISON: None FINDINGS: Heart is normal in size with central bilateral peribronchial opacities. No focal consolidation. No pneumothorax or pleural effusion. Visualized bony thorax within normal limits. IMPRESSION: Mild bronchitis. Electronically signed by: Stephan Kirkpatrick DO (01/06/2019 5:00 AM) [facility]
[2019-01-06 05:05] LABS: BASO % 0 % (0-3); EOS # 0.4 x10^3/uL (0.0-0.7); EOS % 3 % (0-3); HEMATOCRIT 36.6 % (39.0-53.0); HEMOGLOBIN 12.2 g/dL (13.0-17.5); LYMPH # 2.1 x10^3/uL (1.0-4.8); LYMPH % 18 % (24-48); MEAN CORPUSCULAR HEMOGLOBIN 31 pg (25-35); MEAN CORPUSCULAR HGB CONC 33 g/dL (31-37); MEAN CORPUSCULAR VOLUME 92 fL (79-100); MONO # 0.8 x10^3/uL (0.0-1.1); MONO % 7 % (0-9); NEUT # 8.5 x10^3uL (1.8-7.7); NEUT % 72 % (31-73); PLATELET COUNT 262 x10^3/uL (140-400); RED BLOOD COUNT 3.98 x10^6/uL (4.30-5.70); RED CELL DISTRIBUTION WIDTH 13.6 % (11.5-14.5); WHITE BLOOD COUNT 11.9 x10^3/uL (4.0-11.0)
[2019-01-06 05:21] LABS: INFLUENZA A PATIENT NEGATIVE (NEGATIVE); INFLUENZA B PATIENT NEGATIVE (NEGATIVE)
[2019-01-06 05:26] VITALS: BP 167/75
[2019-01-06 05:26] LABS: CREATININE 1.2 mg/dL (0.7-1.3); GFR 63.6; POTASSIUM 3.5 mmol/L (3.5-5.1)
[2019-01-06 05:33] LABS: ALBUMIN 3.5 g/dL (3.4-5.0); ALBUMIN/GLOBULIN RATIO 0.9 (1.0-1.7); TOTAL BILIRUBIN 0.8 mg/dL (0.2-1.0); TOTAL PROTEIN 7.5 g/dL (6.4-8.2)
[2019-01-06] MEDS ORDERED: AMOX1TAB61 PO (05:36)
[2019-01-06] MEDS ORDERED: METH4TAB2 PO (05:36)
[2019-01-06] MEDS ORDERED: cefTRIAXone IV Push 1 GM VIAL. IVP ONE (06:00)
--- NOTE | 2019-01-06 06:15 | EKG ---
[facility] [address] [place] [address] Test Date: 2019-01-06 Test Time: 04:27:49 Pat Name: FAUZIA BENAVIDEZ Department: Room: Gender: M Appointment Manager: : [id number] Requested By: JEFFERY COOPER Order Number: [id number] Reading MD: Sd Justice MD Measurements Intervals Watson Rate: 93 P: 128 WI: 184 QRS: 129 QRSD: 96 T: 158 QT: 346 QTc: 433 Interpretive Statements SINUS RHYTHM CONSIDER LIMB LEAD MISPLACEMENT Electronically Signed On 01-13-2019 9:54:07 CDT by Sd Justice MD
== END 2019-01-06 06:00 | disposition home or self-care (01) ==
LOC: ER 04:18
DX: J20.9 Acute bronchitis, unspecified (principal); J44.9 Chronic obstructive pulmonary disease, unspecified; G89.29 Other chronic pain; E11.9 Type 2 diabetes mellitus without complications; I10 Essential (primary) hypertension; I25.2 Old myocardial infarction; Z86.73 Personal history of transient ischemic attack (TIA), and cerebral infarction without residual deficits; F41.9 Anxiety disorder, unspecified; Z88.5 Allergy status to narcotic agent; Z88.8 Allergy status to other drugs, medicaments and biological substances
CPT/HCPCS: 36415; 71046; 80053; 83880; 84484; 85025; 87804; 93005; 96374; 99284; J0696; J7030; 96361